=== PATIENT | male | born 1960 | race Caucasian/White ===

== ENCOUNTER 2020-08-06 07:34 | Outpatient (REF) | payer OTHER, SELFPAY ==
[2020-08-06 09:14] LABS: MANUAL DIFF FLAG NO
[2020-08-06 09:19] LABS: Basophils Absolute Auto 0.1 X10*3/uL (0.0-0.2); Basophils Percent Auto 0.8 % (0-2); Eosinophils Absolute Auto 0.1 X10*3/uL (0.0-0.4); Eosinophils Percent Auto 0.8 % (0-4); Hematocrit 47.4 % (42-52); Hemoglobin 16.1 g/dl (14.0-18.0); Imm Gran Abs Auto 0.02 X10*3/uL (0.00-0.03); Imm Gran Pct Auto 0.3 % (0.0-0.4); Lymphocytes Absolute Auto 1.6 X10*3/uL (1.2-4.9); Lymphocytes Percent Auto 27.1 % (20-40); Mean Corpuscular Hemoglobin 31.1 pg (27.0-33.0); Mean Corpuscular Volume 91.7 fL (80-98); Mean Platelet Volume 10.7 fL (9.4-12.4); Monocytes Absolute Auto 0.5 X10*3/uL (0.1-1.2); Monocytes Percent Auto 8.3 % (2-11); Neutrophils Absolute Auto 3.8 X10*3/uL (2.0-8.3); Neutrophils Percent Auto 62.7 % (45-73); Platelet Count 374 X10*3/uL (160-400); Red Blood Count 5.17 X10*6/uL (4.60-5.80); Red Cell Distribution Width 13.2 % (11.0-16.0); White Blood Count 6.1 X10*3/uL (4.8-10.8)
[2020-08-06 09:28] LABS: Estimated Average Glucose 111 mg/dL; Hemoglobin A1C 152.5939 umol/L; Hemoglobin A1c % 5.5 %
[2020-08-06 09:59] LABS: Alanine Aminotransferase 24 U/L (0-40); Albumin Level 4.5 g/dL (3.5-5.0); Alkaline Phosphatase 44 U/L (39-117); Anion Gap 14 (12-20); Aspartate Amino Transferase 25 U/L (5-37); Bilirubin Total 0.8 mg/dL (0.0-1.0); Blood Urea Nitrogen 20 mg/dL (9-16); Calcium 8.7 mg/dL (8.4-10.2); Carbon Dioxide 25 mmol/L (22-29); Chloride 105 mmol/L (96-108); Cholesterol 222 mg/dL; Estimated Glomerular Filt Rate > 60; Glucose Fasting 91 mg/dL (60-99); HDL Cholesterol 42 mg/dL; LDL Cholesterol Calculated 150 mg/dl; Potassium 5.1 mmol/l (3.3-5.1); Sodium 139 mmol/L (135-145); Total Protein 7.2 g/dL (6.5-8.0); Triglycerides 150 mg/dL
[2020-08-06 10:21] LABS: Prostate Specific Antigen Scr 0.87 ng/mL (<0.05-4.0)
[2020-08-06 11:24] LABS: Free T4 (Free Thyroxine) 1.08 ng/dL (0.71-1.85); Thyroid Stimulating Hormone 1.09 mIU/mL (0.32-4.0); Vitamin D 25-OH Total 32.3 ng/mL (>30)
[2020-08-06 11:28] LABS: Folate 13.6 ng/mL (> or = 4.0); Vitamin B12 489 pg/mL (200-900)
== END 2020-08-06 07:35 | disposition home or self-care (01) ==
LOC: HO.LAB 07:34
PROVIDERS: Internal Medicine; PCP Nurse Practitioner Family; Visit Provider Nurse Practitioner Family
DX: Z00.00 Encounter for general adult medical examination without abnormal findings (principal); Z12.5 Encounter for screening for malignant neoplasm of prostate
CPT/HCPCS: 36415; 80053; 80061; 82306; 82607; 82746; 83036; 84153; 84439; 84443; 85025

== ENCOUNTER 2021-06-15 07:47 | Outpatient (REF) | payer OTHER, SELFPAY ==
[2021-06-15 08:56] LABS: Estimated Average Glucose 105 mg/dL; Hemoglobin A1c % 5.3 %
[2021-06-15 09:38] LABS: Creatinine Urine 155.26 mg/dL
[2021-06-15 09:53] LABS: Alanine Aminotransferase 24 U/L (0-40); Albumin Level 4.4 g/dL (3.5-5.0); Alkaline Phosphatase 56 U/L (39-117); Anion Gap 15 (12-20); Aspartate Amino Transferase 18 U/L (5-37); Bilirubin Total 0.6 mg/dL (0.0-1.0); Blood Urea Nitrogen 14 mg/dL (9-16); Calcium 9.1 mg/dL (8.4-10.2); Carbon Dioxide 22 mmol/L (22-29); Chloride 106 mmol/L (96-108); Cholesterol 200 mg/dL; Estimated Glomerular Filt Rate > 60; Glucose Random 98 mg/dL (60-115); HDL Cholesterol 33 mg/dL; LDL Cholesterol Calculated 116 mg/dl; Potassium 4.1 mmol/L (3.3-5.1); Sodium 139 mmol/L (135-145); Total Protein 7.2 g/dL (6.5-8.0); Triglycerides 256 mg/dL
[2021-06-15 10:01] LABS: Prostate Specific Antigen 1.21 ng/mL (<0.05-4.0)
== END 2021-06-15 07:48 | disposition home or self-care (01) ==
LOC: HO.LAB 07:47
PROVIDERS: PCP Nurse Practitioner Family; Visit Provider Nurse Practitioner Family
DX: Z00.00 Encounter for general adult medical examination without abnormal findings (principal); Z12.5 Encounter for screening for malignant neoplasm of prostate
CPT/HCPCS: 36415; 80053; 80061; 82043; 83036; 84153

== ENCOUNTER 2022-07-22 08:27 | Outpatient (REF) | payer OTHER, SELFPAY ==
[2022-07-22 08:43] LABS: MANUAL DIFF FLAG NO
[2022-07-22 09:15] LABS: Basophils Absolute Auto 0.1 X10*3/uL (0.0-0.2); Basophils Percent Auto 0.6 % (0-2); Eosinophils Absolute Auto 0.1 X10*3/uL (0.0-0.4); Eosinophils Percent Auto 0.4 % (0-4); Hematocrit 45.3 % (42.0-52.0); Hemoglobin 15.3 g/dl (14.0-18.0); Imm Gran Abs Auto 0.09 X10*3/uL (0.00-0.03); Imm Gran Pct Auto 0.7 % (0.0-0.4); Lymphocytes Absolute Auto 2.9 X10*3/uL (1.2-4.9); Lymphocytes Percent Auto 23.7 % (20-40); Mean Corpuscular HGB Conc 33.8 g/dl (31.0-36.0); Mean Corpuscular Hemoglobin 30.4 pg (27.0-33.0); Mean Corpuscular Volume 90.1 fL (80.0-98.0); Monocytes Absolute Auto 1.3 X10*3/uL (0.1-1.2); Monocytes Percent Auto 10.3 % (2-11); Neutrophils Percent Auto 64.3 % (45-73); Platelet Count 364 X10*3/uL (160-400); Red Blood Count 5.03 X10*6/uL (4.60-5.80); Red Cell Distribution Width 13.7 % (11.0-16.0); White Blood Count 12.4 X10*3/uL (4.8-10.8)
[2022-07-22 09:30] LABS: Alanine Aminotransferase 31 U/L (0-40); Albumin Level 4.5 g/dL (3.5-5.0); Alkaline Phosphatase 53 U/L (39-117); Anion Gap 15 (12-20); Aspartate Amino Transferase 19 U/L (5-37); Bilirubin Total 0.5 mg/dL (0.0-1.0); Blood Urea Nitrogen 16 mg/dL (9-16); Calcium 9.6 mg/dL (8.4-10.2); Carbon Dioxide 28 mmol/L (22-29); Chloride 102 mmol/L (96-108); Cholesterol 204 mg/dL; Estimated Glomerular Filt Rate > 60; Glucose Random 91 mg/dL (60-115); HDL Cholesterol 43 mg/dL; LDL Cholesterol Calculated 115 mg/dl; Potassium 4.1 mmol/L (3.3-5.1); Sodium 141 mmol/L (135-145); Total Protein 7.2 g/dL (6.5-8.0); Triglycerides 232 mg/dL
[2022-07-22 09:40] LABS: Estimated Average Glucose 111 mg/dL; Hemoglobin A1c % 5.5 %
[2022-07-22 09:50] LABS: Prostate Specific Antigen 0.81 ng/mL (<0.05-4.0)
[2022-07-22 09:55] LABS: Vitamin B12 421 pg/mL (200-900)
== END 2022-07-22 08:28 | disposition home or self-care (01) ==
LOC: HO.LAB 08:27
PROVIDERS: Visit Provider Nurse Practitioner Family
DX: Z00.00 Encounter for general adult medical examination without abnormal findings (principal); Z12.5 Encounter for screening for malignant neoplasm of prostate
CPT/HCPCS: 36415; 80053; 80061; 82607; 83036; 84153; 85025

== ENCOUNTER 2023-04-22 18:04 | Emergency (ER) | payer OTHER, SELFPAY ==
[2023-04-22 18:06] VITALS: BP 118/66; PULSE 95; RESP 18; TEMP 37.6; O2SAT 95; BMI 25.8
--- NOTE | 2023-04-22 18:07 | ED.GENADULT ---
HPI - General Adult General Chief complaint: Fever Stated complaint: high fever, weakness Time Seen by Provider: 04/22/23 19:11 Source: patient, RN notes reviewed and old records reviewed Mode of arrival: ambulatory Limitations: no limitations History of Present Illness HPI narrative: 62-year-old male who denies any past medical history or surgical history presents for evaluation of fevers and nausea. Patient reports his symptoms started 2 days ago. He has been using Tylenol home with some relief of his fever. Denies any abdominal pain. He does complain of a mild sore throat. Denies any sick contacts His fever at home has been as high as 103 Related Data Previous Rx's Medication Instructions Recorded cefuroxime axetil 500 mg tablet 500 mg PO Q12H #13 tabs 04/23/23 Allergies Allergy/AdvReac Type Severity Reaction Status Date / Time No Known Allergies Allergy Verified 04/22/23 18:09 [No Known Allergies*] Review of Systems Constitutional: Constitutional: Reports as per HPI, Reports body ache(s), Reports chills, Reports fatigue, Reports fever(s) and Reports malaise ENT: Reports sore throat Cardiovascular: Cardiovascular: Denies chest pain and Denies dyspnea Respiratory: Respiratory: Denies dyspnea Gastrointestinal: Gastrointestinal: Denies abdominal pain, Denies constipation, Reports nausea and Denies vomiting Genitourinary: Genitourinary: Denies difficulty urinating and Denies dysuria Neurologic: Denies focal weakness Endocrine: Endocrine: Reports fatigue PMFSH Social History Social History Alcohol intake: current Alcohol intake frequency: a few times a month Smoked in Last 30 Days: No Use of substances other than those prescribed or required for medical reasons: No Advance Directives: No Advance Directives Information Provided: No Physical Exam ED Vital Signs: Vital Signs - 24 hr 04/22/23 18:06 04/22/23 18:23 04/22/23 18:37 Temperature 99.6 F 100.3 F 102.6 F H Pulse Rate 95 79 83 Respiratory Rate 18 22 H Blood Pressure 118/66 Pulse Oximetry 95 Oxygen Delivery Method Room Air 04/22/23 20:56 04/22/23 22:08 Temperature 99 F 99.4 F Pulse Rate 70 67 Respiratory Rate 22 H 20 Blood Pressure 112/62 94/55 L Pulse Oximetry 93 93 Oxygen Delivery Method Room Air Room Air BMI result Body Mass Index 25.8 Const General: healthy appearing, comfortable, no acute distress, alert and awake Nutritional Appearance: well nourished Orientation/consciousness: patient oriented x3 HENMT Head: Yes normocephalic and Yes atraumatic Throat: Yes posterior oropharynx normal Eyes Eyelids: Yes eyelids normal Conjunctivae: conjunctivae normal Sclerae: sclerae normal Corneas: corneas normal Pupils: Equal, round and reactive pupils present EOM: EOMs intact bilaterally Neck Neck: Yes full ROM Resp Effort & Inspection: normal respiratory effort, able to speak in complete sentences, no audible wheezes and not labored Auscultation: clear to auscultation bilaterally Cardio Rate: regular rate Rhythm: regular rhythm GI Inspection: No distended Palpation (GI): Soft to palpation, not firm, nontender, no guarding and not rigid Auscultation: normoactive bowel sounds Skin General skin exam: no rashes or lesions noted and elasticity normal Neuro General: patient oriented x3 Cranial nerves: Yes Equal, round and reactive pupils present and Yes Bilaterally intact EOM present Cognition (Neuro): normal cognition Extrem Other: Moving all extremities well without any obvious deformities Course Course Course Narrative: RME performed by Julia Kitchen PA-C. Patient is a 62 year old assigned male at presenting to the emergency department with fevers. Labs, imaging, and swab ordered. Patient placed back in the waiting room pending room availability and results. Reevaluation(s) Reevaluation #1: . Patient now reports that he is actually on azithromycin 2 started yesterday after an urgent care for a cough. It is possible a did have a pneumonia that is now clearing up. However the patient's urine has 1+ bacteria with trace esterase. We will add Ceftin which will cover anything left in the lungs as well as any possible UTIs the patient does endorse frequent urination. The patient did have a mild hypotension but was treated with 2 L IV fluid and his blood pressure improved. It is possible the patient had a virus such as hepatitis-A causing his symptoms with elevated LFTs. Time: 00:33 Medications Administered Discontinued Medications Generic Name Dose Route Start Last Admin Trade Name Freq PRN Reason Stop Dose Admin Sodium Chloride 1,000 mls @ 999 mls/hr 04/22/23 19:30 04/22/23 20:55 Ns IV 04/22/23 20:30 Infused .Q1H1M KATHY Infusion Sodium Chloride 1,000 mls @ 999 mls/hr 04/22/23 23:30 04/23/23 00:07 Ns IV 04/23/23 00:30 999 mls/hr .Q1H1M KATHY Administration Ibuprofen 600 mg 04/22/23 19:21 04/22/23 19:34 Ibuprofen 600 Mg Tablet PO 04/22/23 19:22 600 mg ONCE ONE Administration Iohexol 85 ml 04/22/23 23:25 04/22/23 23:26 Iohexol 350 Mg/Ml 100 Ml Infus..Btl IV 04/22/23 23:26 85 ml ONCE ONE Administration Medical Decision Making Medical Decision Making MDM Narrative: Patient arrives febrile with a temperature as high as 102.6?. He will be given ibuprofen he took Tylenol most recently. He only complains of sore throat, nausea and headache. A mono screen was ordered. The patient is not tender in the right upper quadrant but does have elevation of his total bilirubin to 2.1 and liver function tests. We will obtain an ultrasound of the gallbladder Differential Diagnosis Cholelithiasis Acute cholecystitis Hepatitis Sepsis Bronchitis Pneumonia Mononucleosis Admission/Observation Consideration of admission/observation: Escalation of care including admission/observation considered Lab Data MDM Lab Attestation statement: I reviewed the patient's lab results. Patient is leukopenic with a white count of 4.2 which is new for the patient. He does have a left shift. The patient's sodium is low at 131, electrolytes are otherwise within normal limits. Renal function within normal limits. Patient's total bilirubin is high at 2.1, AST and ALT are both elevated to 302 and 409 respectively. 04/22/23 18:34 04/22/23 18:34 Labs: Lab Results 04/22/23 04/22/23 04/22/23 Range/Units 18:34 18:34 18:34 WBC 4.7 L (4.8-10.8) X10*3/uL RBC 5.13 (4.60-5.80) X10*6/uL Hgb 15.7 (14.0-18.0) g/dl Hct 43.1 (42.0-52.0) % MCV 84.0 (80.0-98.0) fL MCH 30.6 (27.0-33.0) pg MCHC 36.4 H (31.0-36.0) g/dl RDW 13.1 (11.0-16.0) % Plt Count 134 L D (160-400) X10*3/uL MPV 10.0 (9.4-12.4) fL Immature Gran % (Auto) 0.2 (0.0-0.4) % Neut % (Auto) 81.6 H (45-73) % Lymph % (Auto) 8.6 L (20-40) % [place] % (Auto) 9.2 (2-11) % Eos % (Auto) 0.0 (0-4) % Baso % (Auto) 0.4 (0-2) % Lymph # (Auto) 0.4 L (1.2-4.9) X10*3/uL [place] # (Auto) 0.4 (0.1-1.2) X10*3/uL Eos # (Auto) 0.0 (0.0-0.4) X10*3/uL Baso # (Auto) 0.0 (0.0-0.2) X10*3/uL Abs Immat Gran (auto) 0.01 (0.00-0.03) X10*3/uL Absolute Neuts (auto) 3.8 (2.0-8.3) x10*3/uL Absolute Nucleated RBC 0.000 (0.0-0.012) X10*3/uL Nucleated RBC % (auto) 0.0 (0.0-0.2) /100WBC Sodium 131 L (135-145) mmol/L Potassium 3.3 (3.3-5.1) mmol/L Chloride 98 (96-108) mmol/L Carbon Dioxide 23 (22-29) mmol/L Anion Gap 13 (12-20) BUN 12 (9-16) mg/dL Creatinine 0.84 (0.5-1.4) mg/dL Estim Creat Clear Calc 85.9 Estimated GFR > 60 Random Glucose 129 H (60-115) mg/dL Lactic Acid (0.5-2.0) mmol/L Calcium 9.0 D (8.4-10.2) mg/dL Magnesium 1.9 (1.6-2.6) mg/dL Total Bilirubin 2.1 H (0.0-1.0) mg/dL AST 302 H (5-37) U/L ALT 409 H (0-40) U/L Alkaline Phosphatase 138 H (39-117) U/L Total Protein 6.7 (6.5-8.0) g/dL Albumin 3.9 (3.5-5.0) g/dL Lipase 151 H (8-78) U/L Urine Color Urine Appearance Urine pH (5.0-9.0) Ur Specific Wall (1.005-1.025) Urine Protein (Neg-Trace) mg/dL Urine Glucose (UA) (Negative) mg/dL Urine Ketones (Negative) mg/dL Urine Blood (Negative) Urine Nitrite (Negative) Ur Leukocyte Esterase (Negative) Urine RBC (0-2) /HPF Urine WBC (0-5) /HPF Ur Squamous Epith Cells (0-2) /HPF Urine Bacteria (None Seen) Hyaline Casts (0-2) /LPF COVID-19 (SRAVANTHI) Negative (Negative) COVID-19 Clin Com See Note Monoscreen (Negative) 04/22/23 04/22/23 04/22/23 Range/Units 18:34 19:42 19:42 WBC (4.8-10.8) X10*3/uL RBC (4.60-5.80) X10*6/uL Hgb (14.0-18.0) g/dl Hct (42.0-52.0) % MCV (80.0-98.0) fL MCH (27.0-33.0) pg MCHC (31.0-36.0) g/dl RDW (11.0-16.0) % Plt Count (160-400) X10*3/uL MPV (9.4-12.4) fL Immature Gran % (Auto) (0.0-0.4) % Neut % (Auto) (45-73) % Lymph % (Auto) (20-40) % [place] % (Auto) (2-11) % Eos % (Auto) (0-4) % Baso % (Auto) (0-2) % Lymph # (Auto) (1.2-4.9) X10*3/uL [place] # (Auto) (0.1-1.2) X10*3/uL Eos # (Auto) (0.0-0.4) X10*3/uL Baso # (Auto) (0.0-0.2) X10*3/uL Abs Immat Gran (auto) (0.00-0.03) X10*3/uL Absolute Neuts (auto) (2.0-8.3) x10*3/uL Absolute Nucleated RBC (0.0-0.012) X10*3/uL Nucleated RBC % (auto) (0.0-0.2) /100WBC Sodium (135-145) mmol/L Potassium (3.3-5.1) mmol/L Chloride (96-108) mmol/L Carbon Dioxide (22-29) mmol/L Anion Gap (12-20) BUN (9-16) mg/dL Creatinine (0.5-1.4) mg/dL Estim Creat Clear Calc Estimated GFR Random Glucose (60-115) mg/dL Lactic Acid 1.3 (0.5-2.0) mmol/L Calcium (8.4-10.2) mg/dL Magnesium (1.6-2.6) mg/dL Total Bilirubin (0.0-1.0) mg/dL AST (5-37) U/L ALT (0-40) U/L Alkaline Phosphatase (39-117) U/L Total Protein (6.5-8.0) g/dL Albumin (3.5-5.0) g/dL Lipase (8-78) U/L Urine Color Dark Yellow Urine Appearance Cloudy Urine pH 5.5 (5.0-9.0) Ur Specific Wall 1.025 (1.005-1.025) Urine Protein 100 (2+) H (Neg-Trace) mg/dL Urine Glucose (UA) Negative (Negative) mg/dL Urine Ketones Negative (Negative) mg/dL Urine Blood Large (3+) H (Negative) Urine Nitrite Negative (Negative) Ur Leukocyte Esterase Trace H (Negative) Urine RBC >20 H (0-2) /HPF Urine WBC 0-5 (0-5) /HPF Ur Squamous Epith Cells 3-5 (0-2) /HPF Urine Bacteria 1+ (None Seen) Hyaline Casts 3-5 (0-2) /LPF COVID-19 (SRAVANTHI) (Negative) COVID-19 Clin Com Monoscreen Negative (Negative) Independent Interpretation I performed an independent interpretation of an: Plain X-Ray (No infiltrate) Radiology Impression Discussion of test interpretation with radiology: I have reviewed the radiologist's reading. (No acute findings within the abdomen pelvis. Enlarged prostate) Independent Historian Clinical information obtained from an independent historian. History obtained from or confirmed by: Spouse External Record Review External record reviewed: Inpatient record Discharge Plan Discharge Clinical Impression: Fever, Acute UTI Patient Disposition: Home, Self-Care Instructions: Urinary Tract Infection in Men (ED) Additional Instructions: Take Ceftin twice daily for the next 7 days. You may continue using your azithromycin Drink lots of fluids Use ibuprofen/Tylenol as needed for your fever Return for new or worsening symptoms Prescriptions: New cefuroxime axetil 500 mg tablet 500 mg PO Q12H Qty: 13 0RF
[2023-04-22 18:23] VITALS: PULSE 79; RESP 22; TEMP 37.9
[2023-04-22 18:37] VITALS: PULSE 83; TEMP 39.2
--- NOTE | 2023-04-22 18:38 | PC.NURSE ---
pt aox4, reporting fever and general weakness x4 days. Pt 102.6 rectal temp. Pt took tylenol at home 650mg at 1700. labs drawn, urine sample sent, IV inserted.
--- NOTE | 2023-04-22 19:29 | PC.NURSE ---
Assumed care of pt. Pt lying on stretcher, no acute distress at this time. Obvious fever by palp, confirmed by oral temp. Pt and state no previous medical hostopry, Given lab results, requested additiona testing from providers for concerns of possible choly/hepatic/pancreatic issues, and sepsis. Provider aware and orders being placed. VSS at this time, plan to complete orderd testing and meds.
[2023-04-22 20:56] VITALS: BP 112/62; PULSE 70; RESP 22; TEMP 37.2; O2SAT 93
[2023-04-22 22:08] VITALS: BP 94/55; PULSE 67; RESP 20; TEMP 37.4; O2SAT 93
[2023-04-23] VITALS: BP 108/60; PULSE 72; RESP 18; O2SAT 97
== END 2023-04-23 00:55 | disposition home or self-care (01) ==
PROVIDERS: Emergency Provider Emergency Medicine; PCP Nurse Practitioner Family
DX: N39.0 Urinary tract infection, site not specified (principal); R50.9 Fever, unspecified; Z20.822 Contact with and (suspected) exposure to COVID-19
CPT/HCPCS: 36415; 71046; 74177; 76705; 80053; 81001; 83605; 83690; 83735; 85025; 86308; 87040; 87635; 96360; 99284; 99285; Q9967

== ENCOUNTER 2023-04-27 11:37 | Outpatient (REF) | payer OTHER, SELFPAY | END 2023-04-27 11:38 | disposition home or self-care (01) | LOC: HO.LAB 11:37 | PROVIDERS: PCP Nurse Practitioner Family; Visit Provider Nurse Practitioner Family | DX: Z12.5 Encounter for screening for malignant neoplasm of prostate (principal); N39.0 Urinary tract infection, site not specified; R74.01 Elevation of levels of liver transaminase levels | CPT/HCPCS: 36415; 80053; 82550; 82607; 84153; 84300; 84443; 85007; 85025; 85027; 85652; 86140 ==

== ENCOUNTER 2023-05-04 16:35 | Emergency (ER) | payer OTHER, SELFPAY ==
--- NOTE | ~2023-05-04 | XR_ITS ---
EXAMINATION: XR CHEST CLINICAL INFORMATION: Cough and fever COMPARISON: Chest x-ray 04/22/2023, 03/03/2015 TECHNIQUE: 2 views of the chest were obtained. FINDINGS: Small band of linear scarring or atelectasis left lung base. No acute airspace disease. No pulmonary vascular congestion. There is no pleural effusion. The heart size is normal. The cardiac and mediastinal contours are normal. There are multilevel degenerative changes of dorsal spine. XR/XR chest 2V IMPRESSION: Unremarkable examination.
--- NOTE | ~2023-05-04 | CT_ITS ---
EXAMINATION: CT HEAD WITHOUT CONTRAST CLINICAL INFORMATION: Lightheaded, frequent falls COMPARISON: None available. TECHNIQUE: Contiguous axial imaging was performed from the skull base to vertex without intravenous administration of contrast. This CT examination was performed using dose optimization techniques as appropriate, variously including the following: *Automated exposure control *Adjustment of mA and/or kV according to patient size (this includes techniques or standardized protocols for targeted exams where dose is matched to indication/reason for exam; i.e. extremities or head) *Use of iterative reconstruction technique DLP: 719 mGy-cm FINDINGS: There is no evidence of acute intracranial hemorrhage or territorial infarction. Somewhat full assessment of the posterior fossa due to artifact. No abnormal mass-effect or midline shift is seen. [place] to white matter differentiation is well preserved. No extra-axial fluid collections are identified. The ventricles are normal in size. There is no abnormal attenuation within the brain parenchyma. The osseous structures and soft tissues are normal. Mucous retention cyst in the right sphenoid sinus. The mastoid air cells are well-aerated. CT/CT head/brain wo IV con IMPRESSION: No acute intracranial pathology.
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
[2023-05-04 17:25] VITALS: BP 135/81; PULSE 84; RESP 20; TEMP 36.8; O2SAT 98; BMI 23.7
[2023-05-04 18:25] LABS: MANUAL DIFF FLAG NO
[2023-05-04 18:26] LABS: Basophils Absolute Auto 0.1 X10*3/uL (0.0-0.2); Basophils Percent Auto 0.6 % (0-2); Hematocrit 44.8 % (42.0-52.0); Hemoglobin 15.5 g/dl (14.0-18.0); Imm Gran Abs Auto 0.08 X10*3/uL (0.00-0.03); Imm Gran Pct Auto 0.6 % (0.0-0.4); Lymphocytes Absolute Auto 2.4 X10*3/uL (1.2-4.9); Lymphocytes Percent Auto 17.8 % (20-40); Mean Corpuscular HGB Conc 34.6 g/dl (31.0-36.0); Mean Corpuscular Hemoglobin 30.8 pg (27.0-33.0); Mean Corpuscular Volume 89.1 fL (80.0-98.0); Mean Platelet Volume 9.1 fL (9.4-12.4); Monocytes Absolute Auto 1.3 X10*3/uL (0.1-1.2); Monocytes Percent Auto 9.8 % (2-11); Neutrophils Absolute Auto 9.5 x10*3/uL (2.0-8.3); Neutrophils Percent Auto 71.2 % (45-73); Platelet Count 326 X10*3/uL (160-400); Red Blood Count 5.03 X10*6/uL (4.60-5.80); Red Cell Distribution Width 13.4 % (11.0-16.0); White Blood Count 13.3 X10*3/uL (4.8-10.8)
[2023-05-04 18:41] LABS: Alanine Aminotransferase 66 U/L (0-40); Albumin Level 4.2 g/dL (3.5-5.0); Alkaline Phosphatase 93 U/L (39-117); Anion Gap 11 (12-20); Aspartate Amino Transferase 33 U/L (5-37); Bilirubin Total 1.3 mg/dL (0.0-1.0); Blood Urea Nitrogen 16 mg/dL (9-16); Calcium 9.8 mg/dL (8.4-10.2); Carbon Dioxide 22 mmol/L (22-29); Chloride 100 mmol/L (96-108); Estimated Glomerular Filt Rate > 60; Glucose Random 113 mg/dL (60-115); Lipase 92 U/L (8-78); Potassium 4.3 mmol/L (3.3-5.1); Sodium 129 mmol/L (135-145)
[2023-05-04 20:38] LABS: Appearance Urine Clear; Color Urine Yellow; Glucose Urine UA Negative (Negative); Leukocyte Esterase Urine Negative (Negative); Nitrite Urine Negative (Negative); PH 5.5 (5.0-9.0); UMIC TRIGGER UACC YES; Urine Blood Moderate (2+) (Negative); Urine Ketones Trace mg/dL (Negative); Urine Protein Trace mg/dL (Neg-Trace)
[2023-05-04 20:43] LABS: Bacteria Urine None Seen (None Seen); Hyaline Casts Urine 0-2 /LPF (0-2); Squamous Epithelial Cell Urine 0-2 /HPF (0-2); WBC Urine 0-5 /HPF (0-5)
[2023-05-04 22:06] VITALS: BP 133/78; PULSE 88; RESP 16; TEMP 37.6; O2SAT 93
[2023-05-04] MEDS: Acetaminophen 325 MG TABLET 975 MG PO (22:43)
[2023-05-04] MEDS: 0.9 % Sodium Chloride 1,000 ML 999 ML IV (22:43)
[2023-05-04] MEDS: Ibuprofen 400 MG TABLET PO (22:44)
[2023-05-04 23:00] LABS: Influenza A PCR NEGATIVE (Negative); Influenza B PCR NEGATIVE (Negative); Resp Syncy Virus RNA Qual PCR NEGATIVE (Negative); SARS COV2 PCR INHOUSE NEGATIVE (Negative)
[2023-05-09 02:27] LABS: A. Phagocytphilium DNA,RT-PCR DETECTED (NOT DETECTED); Babesia Microti DNA, RT-PCR NOT DETECTED (NOT DETECTED); Borrelia Miyamotoi,DNA RT-PCR NOT DETECTED (NOT DETECTED); E.Chaffeensis DNA RT-PCR NOT DETECTED (NOT DETECTED); Lyme(Borrelia ssp)DNA RT-PCR NOT DETECTED (NOT DETECTED)
== END 2023-05-05 01:37 | disposition home or self-care (01) ==
PROVIDERS: Registered Nurse Emergency; Emergency Provider Student in an Organized Health Care Education/Training Program; PCP Nurse Practitioner Family
DX: R51.9 Headache, unspecified (principal); R10.30 Lower abdominal pain, unspecified; R07.89 Other chest pain; Z20.822 Contact with and (suspected) exposure to COVID-19; Z20.828 Contact with and (suspected) exposure to other viral communicable diseases; Z79.899 Other long term (current) drug therapy
CPT/HCPCS: 0241U; 36415; 70450; 71046; 80053; 81001; 83690; 85025; 87798; 87801; 96360; 99284

== ENCOUNTER 2024-08-13 15:49 | Outpatient (REF) | payer OTHER, SELFPAY ==
--- NOTE | ~2024-08-13 | XR_ITS ---
EXAMINATION: XR LUMBOSACRAL SPINE CLINICAL INFORMATION: PAIN COMPARISON: None available. TECHNIQUE: Three views of the lumbosacral spine. FINDINGS: Submitted for interpretation on September 13, 2024. Multilevel marginal osteophyte formation and endplate sclerosis with decreased intervertebral disc height. No acute cortical disruption or malalignment. S-shaped curvature of the lumbar spine. No lytic or blastic lesions. Osteopenia versus osteoporosis. There is contrast within the urinary collecting system and bladder from prior imaging exam. XR/XR lumbar spine 2-3V IMPRESSION: Multilevel spondylosis without acute fracture or listhesis. Electronically signed by: Guy Storey MD 09/13/2024 10:26 AM MARGOTH
--- NOTE | ~2024-08-13 | CT_ITS ---
EXAMINATION: CT ABDOMEN AND PELVIS WITH CONTRAST CLINICAL INFORMATION: Right upper quadrant pain. Disorder of the urinary system. COMPARISON: CT dated April 22, 2023. TECHNIQUE: Multidetector volumetric images were obtained from the superior aspect of the liver through the pubic symphysis following administration 85 mL of Omnipaque 350 intravenous contrast. Sagittal and coronal reformatted images were obtained on the technologist's workstation. Oral contrast: No This CT examination was performed using dose optimization techniques as appropriate, variously including the following: *Automated exposure control *Adjustment of mA and/or kV according to patient size (this includes techniques or standardized protocols for targeted exams where dose is matched to indication/reason for exam; i.e. extremities or head) *Use of iterative reconstruction technique DLP: 329 mGy-cm FINDINGS: LUNG BASES: Patchy and linear attenuation, lingula. Patchy pulmonary groundglass in the periphery of the lung bases. LIVER, GALLBLADDER, AND BILIARY TREE: Liver measures 15 cm. Punctate calcification left hepatic lobe. No focal mass. Main portal vein, hepatic veins and intrahepatic portion of the IVC are patent. No intrahepatic or extrahepatic biliary ductal dilatation. No pericholecystic fluid collection or gallbladder wall thickening. PANCREAS: No focal mass. No peripancreatic fluid collection. No main pancreatic ductal dilatation. Punctate calcification in the mid to distal splenic artery. SPLEEN: 8 cm. No focal mass. ADRENAL GLANDS: No nodular lesions. KIDNEYS AND URETERS: Normal enhancement pattern. No hydronephrosis. 1.6 cm fluid density at the corticomedullary junction, midportion left kidney. No gross renal mass. BLADDER: Fluid-filled. GASTROINTESTINAL TRACT: Abundant stool, large intestine. No intestinal obstruction pattern. No ascites. No pneumatosis intestinalis. No pneumoperitoneum. Terminal ileum is normal. Appendix is short. ABDOMINAL WALL: Fat-containing umbilical hernia, moderate size. Diastases abdominal rectus muscles in the periumbilical region. LYMPH NODES: No lymphadenopathy, mesenteric or retroperitoneal. VASCULAR: No aneurysm or dissection, abdominal aorta. Calcified plaques in the iliac arteries. PELVIC VISCERA: Calcifications in the pelvis likely phleboliths. Nonenlarged prostate gland. Prominent seminal vesicles. OSSEOUS STRUCTURES: Multilevel thoracolumbar spondylosis. No acute fracture or gross listhesis. No lytic or blastic lesions. Degenerative changes in the sacroiliac joints and hips. CT/CT abdomen pelvis w IV con IMPRESSION: Fat-containing umbilical hernia, moderate size. Abundant stool without intestinal obstruction pattern. 1.6 cm Bosniak type II cyst, left kidney. Subsegmental atelectasis versus scarring, lingula. Underlying pulmonary nodule cannot be excluded. Fleischner guidelines were followed. Electronically signed by: Guy Storey MD 09/13/2024 10:38 AM [facility] [place]
[2024-08-13] MEDS: iohexoL 350 MG/ML 100 ML INFUS..BTL IV (16:43)
[2024-08-15 09:09] LABS: Creatinine POC 0.8 mg/dL (0.5-1.4); GFR POC > 60
== END 2024-08-13 15:50 | disposition home or self-care (01) ==
LOC: HO.CT 15:49
PROVIDERS: Psychiatry & Neurology Neurology; PCP Nurse Practitioner Family; Visit Provider Nurse Practitioner Family
DX: M54.50 Low back pain, unspecified (principal); R10.11 Right upper quadrant pain; R74.01 Elevation of levels of liver transaminase levels
CPT/HCPCS: 72100; 74177; 82565; Q9967

== ENCOUNTER → 2024-08-13 15:52 | Outpatient (BNV) | payer OTHER, SELFPAY | PROVIDERS: PCP Nurse Practitioner Family; Visit Provider Radiology Diagnostic Radiology | DX: R10.11 Right upper quadrant pain (principal); M54.50 Low back pain, unspecified | CPT/HCPCS: 72100; 74177 ==

== ENCOUNTER 2025-02-11 07:24 | Outpatient (REF) | payer OTHER, SELFPAY ==
[2025-02-11 07:45] LABS: MANUAL DIFF FLAG NO
[2025-02-11 09:05] LABS: Basophils Absolute Auto 0.1 X10*3/uL (0.0-0.2); Basophils Percent Auto 0.7 % (0-2); Eosinophils Absolute Auto 0.1 X10*3/uL (0.0-0.4); Eosinophils Percent Auto 0.8 % (0-4); Hematocrit 46.8 % (42.0-52.0); Hemoglobin 16.3 g/dl (14.0-18.0); Imm Gran Abs Auto 0.04 X10*3/uL (0.00-0.03); Imm Gran Pct Auto 0.6 % (0.0-0.4); Lymphocytes Absolute Auto 2.2 X10*3/uL (1.2-4.9); Lymphocytes Percent Auto 30.7 % (20-40); Mean Corpuscular HGB Conc 34.8 g/dl (31.0-36.0); Mean Corpuscular Hemoglobin 31.3 pg (27.0-33.0); Mean Corpuscular Volume 89.8 fL (80.0-98.0); Mean Platelet Volume 10.2 fL (9.4-12.4); Monocytes Absolute Auto 0.6 X10*3/uL (0.1-1.2); Monocytes Percent Auto 8.4 % (2-11); Neutrophils Absolute Auto 4.3 x10*3/uL (2.0-8.3); Neutrophils Percent Auto 58.8 % (45-73); Platelet Count 342 X10*3/uL (160-400); Red Blood Count 5.21 X10*6/uL (4.60-5.80); Red Cell Distribution Width 13.1 % (11.0-16.0); White Blood Count 7.3 X10*3/uL (4.8-10.8)
[2025-02-11 09:13] LABS: Estimated Average Glucose 114 mg/dL; Hemoglobin A1C 160.1766 umol/L; Hemoglobin A1c % 5.6 % (<6.0); Total Hemoglobin (HGBA1C) 4306.9865 umol/L
[2025-02-11 09:47] LABS: Alanine Aminotransferase 26 U/L (0-40); Albumin Level 4.6 g/dL (3.5-5.0); Alkaline Phosphatase 53 U/L (39-117); Anion Gap 11 (12-20); Aspartate Amino Transferase 26 U/L (5-37); Bilirubin Total 0.8 mg/dL (0.0-1.0); Blood Urea Nitrogen 27 mg/dL (9-16); C Reactive Protein 0.11 mg/dL (< or = 0.50); Calcium 9.3 mg/dL (8.4-10.2); Carbon Dioxide 28 mmol/L (22-29); Chloride 106 mmol/L (96-108); Cholesterol 216 mg/dL (<200); Estimated Glomerular Filt Rate > 60; Glucose Random 93 mg/dL (60-115); HDL Cholesterol 38 mg/dL (>40); LDL Cholesterol Calculated 144 mg/dL (<100); Potassium 3.8 mmol/L (3.3-5.1); Sodium 141 mmol/L (135-145); Total Protein 7.2 g/dL (6.5-8.0); Triglycerides 174 mg/dL (<150)
[2025-02-11 09:58] LABS: Erythrocyte Sedimentation Rate 2 MM/HR (0-15)
[2025-02-11 10:05] LABS: Prostate Specific Antigen 1.18 ng/mL (<0.05-4.0); Vitamin B12 518 pg/mL (200-900)
[2025-02-11 10:07] LABS: Thyroid Stimulating Hormone 1.74 uIU/mL (0.32-4.0); Vitamin D 25-OH Total 38.4 ng/mL (>30)
[2025-02-12 07:13] LABS: LDL Cholesterol Direct 139 mg/dL (<100)
== END 2025-02-11 07:25 | disposition home or self-care (01) ==
LOC: HO.LAB 07:24
PROVIDERS: PCP Nurse Practitioner Family; Visit Provider Nurse Practitioner Family
DX: M05.00 Felty's syndrome, unspecified site (principal); Z12.5 Encounter for screening for malignant neoplasm of prostate; M54.50 Low back pain, unspecified; Z13.1 Encounter for screening for diabetes mellitus; Z13.6 Encounter for screening for cardiovascular disorders
CPT/HCPCS: 36415; 80053; 80061; 82306; 82607; 83036; 83721; 84153; 84443; 85025; 85652; 86140

== ENCOUNTER 2025-10-09 14:49 | Outpatient (AMB) | payer OTHER, SELFPAY ==
--- NOTE | 2025-10-09 15:16 | MHC.OFFVIS ---
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 HE is presenting for management of headaches. He reports experiencing headaches almost every day, with each episode lasting for three to four hours. He denies any associated sinus problems or a runny nose. The patient also complains of issues with the muscles in his back. His daily activities include walking and performing light tasks around the yard. He denies feeling slow when he wakes up in the middle of the night and reports his functional status as otherwise normal. [facility] Medical History (Updated 10/09/25 @ 15:31 by Citlaly Brown MD) Sinusitis Migraine without aura Social History Alcohol intake: current Alcohol intake frequency: a few times a month Review of Systems Narrative - Neurological: Reports daily headaches. - Constitutional: Denies feeling slow. - HEENT: Reports facial pain and a sensation of a mass. - Musculoskeletal: Reports issues with his back muscles. - Respiratory: Denies runny nose or sinus problems. Physical Exam Neuro Other: Mental Status: Alert and oriented to person, place, and time. Normal attention. Normal spontaneous speech, fluency, and comprehension. Cranial Nerves: CN II: Visual granados full to confrontation, visual acuity intact. CN III, IV, : Pupils equal, round, reactive to light and accommodation. Extraocular movements are normal. CN V: Facial sensation is normal. CN VII: Facial movements symmetrical. CN VIII: Hearing intact to bedside conversation is normal. CN IX, X: Palate elevates symmetrically. CN XI: Shoulder shrug and head turn symmetrical. CN XII: Tongue midline without atrophy or fasciculations. Extrapyramidal: Full facial expressions and blinking. No rigidity. Movements are appropriate with no tremor or abnormality. Speech: Normal; no dysarthria or tremor. Assessment & Plan Assessment & Plan (1) Parkinson disease: Comment: Meds tried for headaches: Topiramate, propranolol, amitriptyline CT brain WO [place] [facility] [place]: WNL MRI brain WO at [facility] in 2023: Minimal MVD, no thalamic lesion, R ethmoid sinus disease. Code(s): G20.A1 - Parkinson's disease without dyskinesia, without mention of fluctuations Category: Medical Qualifiers: Dyskinesia presence: without dyskinesia Fluctuating manifestations: without fluctuating manifestations Qualified Code(s): G20.A1 - Parkinson's disease without dyskinesia, without mention of fluctuations (2) Migraine without aura: Code(s): G43.009 - Migraine without aura, not intractable, without status migrainosus Category: Medical Qualifiers: Status migrainosus presence: without status migrainosus Intractability: not intractable Qualified Code(s): G43.009 - Migraine without aura, not intractable, without status migrainosus (3) Low back pain: Code(s): M54.50 - Low back pain, unspecified Category: Medical Qualifiers: Chronicity: unspecified Back pain laterality: bilateral Sciatica presence: without sciatica Qualified Code(s): M54.50 - Low back pain, unspecified Plan Impression: a: Parkinson disease, mild b: Migraine w/o aura c: Lumbar area pain, probably muscular Rec: a: Carbidopa/levodopa 25/100, one tid b: Topiramate 25mg one at night c: Sumatriptan 50mg one a day as needed for headaches. d: Regular stretching activity and exercise I discussed the patient's daily headaches and my plan to add a new medication, topiramate, to be taken at bedtime for better control. We also addressed his complaints of back muscle issues. I offered a referral for physical therapy, clarifying that it is his choice and the condition is not currently serious. The patient declined therapy for now but understands he can request it in the future if needed. Medications: New topiramate 25 mg orally one at night; 90 tabs 1RF sumatriptan succinate 50 mg orally one a day as needed; 9 tabs 5RF Refilled carbidopa-levodopa 25-100 mg (Sinemet) 1 tab PO TID 270 tabs 1RF Coding Level of Care Code Est Pt Level 4 (66268) Diagnoses Parkinson's disease without dyskinesia or fluctuating manifestations G20.A1 Dyskinesia presence: without dyskinesia Fluctuating manifestations: without fluctuating manifestations Migraine without aura and without status migrainosus, not intractable G43.009 Status migrainosus presence: without status migrainosus Intractability: not intractable Bilateral low back pain without sciatica, unspecified chronicity M54.50 Chronicity: unspecified Back pain laterality: bilateral Sciatica presence: without sciatica
== END 2025-10-09 15:31 | disposition home or self-care (01) ==
LOC: HO.HSM 14:50
PROVIDERS: PCP Nurse Practitioner Family; Referring Provider Nurse Practitioner Family; Visit Provider Psychiatry & Neurology Neurology
DX: G20.A1 Parkinson's disease without dyskinesia, without mention of fluctuations (principal); G43.009 Migraine without aura, not intractable, without status migrainosus; M54.50 Low back pain, unspecified
CPT/HCPCS: 99214